=== PATIENT | female | born 1985 | race Caucasian/White ===

== ENCOUNTER 2021-11-16 11:07 | Emergency (ER) | payer BC, SELFPAY ==
[2021-11-16] VITALS (14 sets, daily range): BP systolic 107–130; BP diastolic 69–78; PULSE 78–86; RESP 18; TEMP 36.7; O2SAT 99–100
--- NOTE | ~2021-11-16 | CT_ITS ---
EXAMINATION: CT abdomen pelvis wo con DATE: 11/16/2021 13:02 INDICATION: Generalized abdominal pain. TECHNIQUE: Computed tomography (CT) of the abdomen and pelvis was performed without intravenous contr ast. The dose-length product was 199.24 mGy-cm. Automated exposure control and iterative reconstructi on technique were employed. COMPARISON: CT dated 11/03/2018. FINDINGS: Lung bases are unremarkable. Heart size normal. No significant pleural or pericardial effus ion. No significant vascular abnormality. There are mildly enlarged mesenteric and retroperitoneal ly mph nodes, likely reactive. Nonobstructive bowel gas pattern. Small amount of free fluid in the pelvi s. There are multiple segments of thickened colon including the ascending colon, sigmoid colon and rectu m, suspicious for colitis, infectious versus inflammatory most likely. The liver, spleen, pancreas, adrenal glands are unremarkable. There are punctate nonobstructing bilat eral renal stones. Bladder is unremarkable. No free air. IMPRESSION: 1. Multiple abnormal thickening segments of colon, suspicious for colitis, most likely infectious or inflammatory. 2: Enlarged mesenteric and retroperitoneal lymph nodes, likely reactive. 3: Nonobstructing bilateral nephrolithiasis. Reviewed, dictated and finalized at location B.
[2021-11-16 12:05] LABS: Basophils Percent Auto 0.5 % (0.2-1.2); Eosinophils Absolute Auto 0.1 K/mm3 (0-0.3); Hematocrit 37.2 % (37.0-47.0); Hemoglobin 12.6 g/dL (12.0-15.0); Immature Granulocyte Absolute 0.02 K/mm3 (0.00-0.031); Immature Granulocyte Percent A 0.2 % (0-0.5); Lymphocytes Absolute Auto 0.96 K/mm3 (0.9-3.2); Mean Corpuscular HGB Conc 33.9 g/dl (32-36); Mean Corpuscular Hemoglobin 32.6 pg (26-34); Mean Corpuscular Volume 96.4 fl (80-100); Mean Platelet Volume 10.5 fl (7.4-10.4); Monocytes Absolute Auto 0.5 K/mm3 (0.1-0.6); Monocytes Percent Auto 6.2 % (2.6-8.5); Neutrophils Absolute Auto 6.4 K/mm3 (1.3-6.7); Neutrophils Percent Auto 80.1 % (45.5-73.1); Platelet Count Result 298 k/mm3 (150-375); Red Blood Count 3.86 M/mm3 (4.2-5.4)
[2021-11-16 12:08] LABS: Appearance Urine Clear (Clear); Bilirubin Urine Negative (Negative); Blood Urine 2+ (Negative); Color Urine Yellow (Yellow); Glucose Urine UA Negative (Negative); Ketones Urine Negative (Negative); Leukocyte Esterase Ur Negative LEU/UL (Negative); Nitrate Urine Negative (Negative); Protein Urine Negative (Negative); Specific Grav Ur 1.025 (1.001-1.035); Urobilinogen Urine 0.2 mg/dL (<2.0); pH Urine 5.5 (5.0-9.0)
[2021-11-16 12:14] LABS: Mucus Urine Rare /lpf; RBC Urine 21-50 /hpf (0-2); Squamous Epithelial Cell Urine Rare /hpf (Few); WBC Urine 0-3 /hpf
[2021-11-16 12:14] LABS: Alanine Aminotransferase 26 U/L (6-35); Albumin Level 4.7 g/dL (3.5-5.1); Alkaline Phosphatase 63 U/L (38-126); Anion Gap 8 mmol/L (8-16); Aspartate Amino Transferase 33 U/L (14-36); Bilirubin,Total 0.5 mg/dL (0.2-1.3); Blood Urea Nitrogen 14 mg/dL (7-17); Calcium 9.4 mg/dL (8.4-10.2); Carbon Dioxide 26 mmol/L (22-30); Chloride 102 mmol/L (98-107); Estimated CRCL calculation 72 ml/min; Estimated Glomerular Filt Rate > 60; Glucose 103 mg/dL (65-110); Lipase 67 U/L (23-300); Potassium 4.7 mmol/L (3.4-5.0); Sodium 136 mmol/L (137-145)
[2021-11-16 12:24] LABS: Add Urine Microscopic? YES
--- NOTE | 2021-11-16 12:52 | ED.ABDPAIN ---
HPI - Abdominal Pain General Chief Complaint: Abdominal Pain Stated Complaint: abd pain since yesterday Time Seen by Provider: 11/16/21 11:55 History of Present Illness HPI narrative: 36-year-old female presented to the emergency department for evaluation of diffuse abdominal pain. Patient states the pain started few days ago and is more epigastric but has since progressed to diffuse abdominal pain. Patient does have some nausea and vomiting. Patient denies any pain with urination. Patient denies any significant past medical history Related Data Allergies Allergy/AdvReac Type Severity Reaction Status Date / Time hydrocodone Allergy Unknown Unknown Unverified 11/16/21 14:03 ibuprofen Allergy Unknown Unknown Unverified 11/16/21 14:03 Review of Systems Review of Systems: CONSTITUTIONAL: Denies fever, chills, or sweats. EYES: Denies visual changes, redness, or discharge. ENT: Denies rhinorrhea, congestion, sore throat, or otalgia. CARDIOVASCULAR: See HPI RESPIRATORY: Denies cough or dyspnea. GASTROINTESTINAL: See HPI GENITOURINARY: Denies dysuria or hematuria. SKIN: Denies rash or itching. MUSCULOSKELETAL: Denies back pain, joint pain, or myalgia. Exam Narrative: APPEARANCE: Well appearing, no pain, no distress, well-nourished. HEAD: normocephalic, atraumatic. EYES: PERRLA/EOMI, conjunctivae clear. NECK: Supple. No adenopathy, no masses. RESPIRATORY: Airway patent, respirations nonlabored. Clear to auscultation bilaterally, no rales, rhonchi, wheezing. CARDIOVASCULAR: Regular rate and rhythm without murmurs rubs or gallops. ABDOMINAL: Soft, nondistended, normal bowel sounds, diffuse abdominal tenderness. MUSCULOSKELETAL: Moves all extremities. Strength/ROM intact NEURO: Alert. Cranial nerves II through XII intact. Grossly intact SKIN: Warm, dry. Normal Color Course Course Emergency Course: Patient was updated on the results of her work-up and CT scan. Patient was educated reasons to return to the emergency department. Patient will have close follow-up with her primary care physician. All questions concerns were addressed. Patient did have hematuria. No obstructing urinary calculi were observed. Patient does have nephrolithiasis bilaterally. Vital Signs Vital signs: Vital Signs Temperature 98.1 F 11/16/21 11:08 Pulse Rate 86 11/16/21 11:08 Respiratory Rate 18 11/16/21 11:08 Blood Pressure 107/73 11/16/21 11:08 Pulse Oximetry 100 11/16/21 11:08 Oxygen Delivery Room Air 11/16/21 11:08 Temperature 98.1 F 11/16/21 11:08 Pulse Rate 78 11/16/21 15:07 Respiratory Rate 18 11/16/21 15:07 Blood Pressure 108/78 11/16/21 15:07 Pulse Oximetry 99 11/16/21 15:07 Oxygen Delivery Room Air 11/16/21 11:08 MDM - Abdominal Pain Lab Data Attestation: I reviewed the patient's lab results. Result diagrams: 11/16/21 11:38 11/16/21 11:38 Labs: Lab Results 11/16/21 11/16/21 11/16/21 Range/Units 11:38 11:38 11:53 WBC 8.0 (4.5-10.0) K/mm3 RBC 3.86 L (4.2-5.4) M/mm3 Hgb 12.6 (12.0-15.0) g/dL Hct 37.2 (37.0-47.0) % MCV 96.4 (80-100) fl MCH 32.6 (26-34) pg MCHC 33.9 (32-36) g/dl RDW 12.0 (11.5-14.5) % Plt Count 298 (150-375) k/mm3 MPV 10.5 H (7.4-10.4) fl Immature Gran % (Auto) 0.2 (0-0.5) % Neut % (Auto) 80.1 H (45.5-73.1) % Lymph % (Auto) 12.0 L (18.3-44.2) % Oxford % (Auto) 6.2 (2.6-8.5) % Eos % (Auto) 1.0 (0-4.4) % Baso % (Auto) 0.5 (0.2-1.2) % Lymph # (Auto) 0.96 (0.9-3.2) K/mm3 Oxford # (Auto) 0.5 (0.1-0.6) K/mm3 Eos # (Auto) 0.1 (0-0.3) K/mm3 Baso # (Auto) 0.0 (0.0-0.1) K/mm3 Abs Immat Gran (auto) 0.02 (0.00-0.031) K/mm3 Absolute Neuts (auto) 6.4 (1.3-6.7) K/mm3 Absolute Nucleated RBC 0.0 (0.0-0.012) K/mm3 Nucleated RBC % 0.0 (0.0-0.2) % Sodium 136 L (137-145) mmol/L Potassium 4.7 (3.4-5.0) mmol/L Chloride 102 (98-107
[2021-11-16] MEDS: SODIUM CHLORIDE 0.9% IV 1,000 ML 999 ML IV CONT (13:40)
== END 2021-11-16 15:08 | disposition home or self-care (01) ==
PROVIDERS: Emergency Medicine; Emergency Provider Emergency Medicine
DX: K52.9 Noninfective gastroenteritis and colitis, unspecified (principal)
CPT/HCPCS: 36415; 74176; 80053; 81001; 81025; 83690; 85025; 96361; 96374; 99284; J0131; J7030

== ENCOUNTER 2023-01-07 17:39 | Emergency (ER) | payer BC, SELFPAY ==
[2023-01-07 17:53] VITALS: BP 123/76; PULSE 82; RESP 16; TEMP 37.3; O2SAT 100
[2023-01-07 17:54] VITALS: BP 123/76; PULSE 82; RESP 16; TEMP 37.3; O2SAT 100
--- NOTE | 2023-01-07 18:15 | ED.URI ---
HPI - URI/Sore Throat General Chief Complaint: Upper Respiratory Infection Stated Complaint: Headache,Rt Ear Irritation,Sore Throat Time Seen by Provider: 01/07/23 18:15 Source: patient Mode of arrival: ambulatory Limitations: no limitations History of Present Illness HPI Narrative: 37-year-old female presented for complaint of headache for about 3 days, started with right ear pain yesterday which has worsened throughout the day. Pain radiates from the ear to the throat, pain with swallowing. She describes the pain as sharp and stabbing. Taking ibuprofen with minimal relief. She denies tinnitus, dizziness, nausea vomiting, fevers or chills. Related Data Home Medications Medication Instructions Recorded Confirmed clonazepam 1 mg tablet 1 mg PO TID 01/07/23 01/07/23 dextroamphetamine-amphetamine ER 20 mg PO DAILY 01/07/23 01/07/23 20 mg 24hr capsule,extend release escitalopram oxalate 5 mg tablet 5 mg PO DAILY 01/07/23 01/07/23 Allergies Allergy/AdvReac Type Severity Reaction Status Date / Time hydrocodone AdvReac Mild Hives Verified 01/07/23 17:53 ibuprofen AdvReac Mild Hives Verified 01/07/23 17:53 Review of Systems Review of Systems: CONSTITUTIONAL: Denies malaise, chills, or fever. EYES: Denies visual changes, redness, or discharge. ENT: Denies rhinorrhea, congestion, sinus pain, and sore throat. Reports ear pain CARDIOVASCULAR: Denies chest pain, palpitations, or edema. RESPIRATORY: Denies cough or dyspnea. GASTROINTESTINAL: Denies abdominal pain, nausea, vomiting, diarrhea SKIN: Denies rash or itching. MUSCULOSKELETAL: Denies myalgia. NEUROLOGIC: reports headache. All systems reviewed & are unremarkable except as noted in HPI and below PMFSH Past Medical History Medical History (Updated 01/07/23 @ 18:26 by Elicia Story APRN) No pertinent past medical history Comments At time of signature, agree with nursing past medical, surgical, social and family history. There is no relevant family history pertinent to the presenting complaint Exam Narrative: GENERAL: Well-appearing, well-nourished, and in no acute distress. HEAD: Normocephalic EYES: PERRLA, conjunctivae clear ENT: Nares clear. Mucous membranes moist. left TM pearly cool with dull light reflex; right TM with extensive scarring, obscuring landmarks, erythema. no tragal tenderness. Oropharynx not erythematous without lesions. Tonsils not enlarged and without exudate, no drooling, no hoarseness, no trismus, uvula midline. NECK: Supple. No lymphadenopathy CHEST: Clear to auscultation, breath sounds equal. No wheezing, rhonchi, rales, or stridor. No respiratory distress, speaks in full sentences. HEART: Regular rate and rhythm. No murmur heard. SKIN: Warm, dry, no rash. NEURO: Alert and oriented x3. PSYCH: Normal mood and affect Course Course Emergency Course: Patient is aware of diagnosis, understands and agrees to treatment plan. Anticipatory guidance given. Patient agrees to follow-up as directed and is aware of reasons to seek care at the emergency department. Portions of this record may have been created with voice recognition software Level of Care: Express Care Visit Vital Signs Vital signs: Vital Signs Temperature 99.2 F 01/07/23 17:53 Pulse Rate 82 01/07/23 17:53 Respiratory Rate 16 01/07/23 17:53 Blood Pressure 123/76 01/07/23 17:53 Pulse Oximetry 100 01/07/23 17:53 Oxygen Delivery Room Air 01/07/23 17:53 Temperature 99.2 F 01/07/23 17:54 Pulse Rate 82 01/07/23 17:54 Respiratory Rate 16 01/07/23 17:54 Blood Pressure 123/76 01/07/23 17:54 Pulse Oximetry 100 01/07/23 17:54 Oxygen Delivery Room Air 01/07/23 17:54 Reviewed MDM - URI/Sore Throat MDM Narrative Medical decision making narrative: Discussed physical exam findings. Advised supportive measures and signs/symptoms to go to the ER. Pt is appropriate for outpt treatment and f/u. Differential Diagnosis Di
== END 2023-01-07 18:26 | disposition home or self-care (01) ==
PROVIDERS: Emergency Provider Nurse Practitioner Family
DX: R51.9 Headache, unspecified (principal); H92.01 Otalgia, right ear; F41.9 Anxiety disorder, unspecified; F90.9 Attention-deficit hyperactivity disorder, unspecified type; F32.A Depression, unspecified
CPT/HCPCS: 99213; G0463

== ENCOUNTER 2023-07-11 17:05 | Emergency (ER) | payer OTHER, SELFPAY ==
--- NOTE | 2023-07-11 17:22 | ED.BACK ---
HPI - Back Pain/Injury General Chief Complaint: Back Pain/Injury Stated Complaint: back pain Time Seen by Provider: 07/11/23 18:00 Source: patient and RN notes reviewed Mode of arrival: ambulatory Limitations: no limitations History of Present Illness HPI Narrative: 38-year-old female presents with concern for back pain started on . Reports she may have slept wrong but the pain keeps getting worse. Reports she has tried icy hot and heating pads without relief. She reports pain is mid back, low back. Reports it radiates to the right leg. She denies loss of bowel or bladder function, perianal anesthesia. She denies abdominal pain, fever, body aches, chills, sweats. Denies dysuria, frequency, urgency. Denies injury MD elicited complaint: back pain Related Data Home Medications Medication Instructions Recorded Confirmed clonazepam 1 mg tablet 1 mg PO TID 01/07/23 01/07/23 dextroamphetamine-amphetamine ER 20 mg PO DAILY 01/07/23 01/07/23 20 mg 24hr capsule,extend release escitalopram oxalate 5 mg tablet 5 mg PO DAILY 01/07/23 01/07/23 Allergies Allergy/AdvReac Type Severity Reaction Status Date / Time hydrocodone AdvReac Mild Hives Verified 07/11/23 17:30 ibuprofen AdvReac Mild Hives Verified 07/11/23 17:30 Review of Systems Review of Systems: CONSTITUTIONAL: Denies malaise, chills, sweats, or fever. CARDIOVASCULAR: Denies chest pain, palpitations, or edema. RESPIRATORY: Denies cough or dyspnea. GASTROINTESTINAL: Denies abdominal pain, nausea, vomiting, diarrhea, loss of bowel function GENITOURINARY: Denies dysuria, hematuria, frequency, loss of bladder function. SKIN: Denies rash or itching. MUSCULOSKELETAL: Reports mid and low back pain that radiates to the right leg NEUROLOGIC: Denies numbness, weakness, or headache. All systems reviewed & are unremarkable except as noted in HPI and below PMFSH Past Medical History Medical History (Updated 07/11/23 @ 18:10 by Nely Franco NP) No pertinent past medical history Comments At time of signature, agree with nursing past medical, surgical, social and family history. There is no relevant family history pertinent to the presenting complaint Exam Narrative: GENERAL: Well-appearing, well-nourished, and in no acute distress. HEAD: Normocephalic, atraumatic. EYES: PERRLA and EOMI. NECK: Supple. No lymphadenopathy. CHEST: Clear to auscultation. No respiratory distress. HEART: Regular rate and rhythm. Distal pulses palpable and equal, cap refill <3 seconds ABDOMEN: Soft, nontender, nondistended, normal active bowel sounds, no palpable or pulsatile masses. No CVA tenderness MUSCULOSKELETAL: Normal range of motion and strength in all extremities; 5/5 strength with hip flexion and extension, dorsiflexion and extension, knee flexion and extension, plantar flexion and extension. Normal sensation in dermatomal distributions with sensitivity to light touch and pain. No midline back tenderness to palpation. No paraspinal tenderness. Transfers from to sitting to standing. SKIN: Warm, dry, no rash. No ecchymosis, erythema, open wounds to back. NEURO: No focal deficits. Alert and oriented x3. Normal gait. PSYCH: Normal mood and affect Course Course Emergency Course: Patient is aware of diagnosis, understands and agrees to treatment plan. Anticipatory guidance given. Patient agrees to follow-up as directed and is aware of reasons to seek care at the emergency department. Portions of this record may have been created with voice recognition software Level of Care: Express Care Visit Vital Signs Vital signs: Reviewed. MDM - Back Pain/Injury MDM Narrative Medical decision making narrative: No risk factors or findings concerning for epidural abscess, diskitis, vertebral osteomyelitis, cord compression, cauda equina, vertebral fracture or bone malignancy, AAA, or pyelonephritis. Patient instructed to consider further imaging and workup through their primary
[2023-07-11 17:30] VITALS: BP 120/67; PULSE 69; RESP 16; TEMP 36.2; O2SAT 100
== END 2023-07-11 18:12 | disposition home or self-care (01) ==
PROVIDERS: Emergency Provider Nurse Practitioner
DX: M54.6 Pain in thoracic spine (principal); M54.50 Low back pain, unspecified
CPT/HCPCS: 99213; G0463

== ENCOUNTER 2024-07-18 17:15 | Emergency (ER) | payer OTHER, SELFPAY ==
--- NOTE | ~2024-07-18 | CT_ITS ---
History: Medial back pain, T5 dermatome PROCEDURE: CT thoracic and lumbar spines without intravenous contrast. COMPARISON: None TECHNIQUE: Multiple contiguous axial images of the thoracic spine were performed without the administration of i ntravenous contrast. DLP: 798 mGy-cm FINDINGS: Preservation of the normal curvature of the thoracic and lumbar spines is identified. No acute compression fractures are present. No soft tissue abnormality is noted. No significant degenerative disease is present. Impression: Unremarkable CT examination of the thoracic and lumbar spines, as detailed above. Reviewed, dictated and finalized at location A. E BALL MIXER Impression: Unremarkable CT examination of the thoracic and lumbar spines, as detailed kelsy bruce
--- NOTE | ~2024-07-18 | XR_ITS ---
CHEST RADIOGRAPH CLINICAL HISTORY: R mid back pain; PA view possible? Assess for PNA . COMPARISON: None available TECHNIQUE: Single portable view of the chest. FINDINGS The cardiomediastinal silhouette is unremarkable. The lungs are clear. Visualized osseous structures and soft tissues are unremarkable. IMPRESSION: No focal infiltrate or effusion. Reviewed, dictated and finalized at location A. ENGINEER NUCLEAR EQUIPMENT
[2024-07-18 17:16] VITALS: BP 141/97; PULSE 96; RESP 16; TEMP 36.4; O2SAT 100
--- OUTSIDE RECORDS SUMMARY | 2024-07-18 17:16 | XMS_ITS | Referral Summary ---
Author Organization [facility] Address [address] [place] [address] Care Team Providers Care Prototype Deicer Assembler Name Role Phone Kristen Brennan MD Primary Care Provider Allergies No known active allergies Medications dextroamphetamin e-amphetamine (ADDERALL) 10 mg tablet 10 mg Active clonazePAM (KlonoPIN) 1 mg tablet Take 1 mg by mouth 3 (three) times a day Active Active Problems No known active problems Social History Tobacco Use Types Packs/Day Years Used Date Smoking Tobacco: Never Smokeless Tobacco: Never Comments No Sex and Gender Information Value Date Recorded Sex Assigned at Not on file 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 Gender Identity Not on file Sexual Orientation Not on file Last Filed Vital Signs Vital Sign Reading Time Taken Comments Blood Pressure 114/77 02/05/2022 10:24 AM CDT Pulse 96 02/05/2022 10:24 AM CDT Temperature 37.1 C (98.8 F) 02/05/2022 10:24 AM CDT Respiratory Rate 16 02/05/2022 10:24 AM CDT Oxygen Saturation 98% 02/05/2022 10:24 AM CDT Inhaled Oxygen Concentration - - Weight 52.4 kg (115 lb 9.6 oz) 02/05/2022 10:24 AM CDT Height 154.9 cm (5' 1 ) 02/05/2022 10:24 AM CDT Body Mass Index 21.84 02/05/2022 10:24 AM CDT Plan of Treatment Not on file Insurance BLUE ACCESS OOS BLUE ACCESS OOS BLUE ACCESS OOS Care Teams Prototype Deicer Assembler Relationship Specialty [place] [id number] [facility] [address] [place] [address] PCP - General Family Medicine 01/25/22
--- OUTSIDE RECORDS SUMMARY | 2024-07-18 17:17 | XMS_ITS | Encounter Summary ---
Author Organization [facility] Address 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 Report feedback Dr Apoorva Stratton <<<<<<<< TRIAGE NOTE >>>>>>>> Triage Note: Tapping Machine Operator Automatic Sally Lundy added this note on Feb 23 2015 1:23PM: carolina peralta, Pt insists/ med refill [place], [phone], Sally/RN/NOC. Pt states she came back from out of town and clonazepam is misplaced. <<<<<<<< TRIAGE/OUTCOME >>>>>>>> Guideline Title: Medication Questions - Adult Recommended Disposition: Speak with Provider or Pharmacist within 24 hours Original Inclination: Call Provider/See in 24 Intended Action: Call Provider Immediately Physician Contacted: No Requests refill of prescribed medication with valid refills; lack of medications does not put patient at clinical risk ? YES documented in this encounter Plan of Treatment Not on file documented as of this encounter Visit Diagnoses Not on filedocumented in this encounter Care Teams Dispensing Operator Relationship Specialty [place] [id number] [facility] [address] [place] [phone] PCP - General Family Practice 06/23/21 documented as of this encounter
--- OUTSIDE RECORDS SUMMARY | 2024-07-18 17:17 | XMS_ITS | Clinical Summary ---
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 Gender Identity Not on file Sexual Orientation Not on file Obstetrics History Last Filed Vital Signs Vital Sign Reading [...] 02/05/2022 10:24 AM CDT Plan of Treatment Health Maintenance Due Date Last Done Comments Breast Cancer Screening-Mammogram 1984 Cervical Cancer Screening 1984 Depression Screening 1984 Hepatitis C Screening 1984 DTaP/Tdap/Td Vaccine (1 - Tdap) 1995 Varicella Vaccines (1 of 2 - 13+ 2-dose series) 1997 Hepatitis B Screening 2002 Regular Well Visit/Exam 18-64 2002 Influenza Vaccine (#1) 2024 04/25/2014 HPV Vaccines Aged Out No longer eligi ble based on patient's age to complete this topic Pneumococcal vaccine <65 Aged Out No longer eligible based on patient's age to complete this topic Insurance iCrossing OOS iCrossing OOS iCrossing OOS Care Teams Training Lead Relationship Specialty [place] [id number] [address] PCP - General Family Medicine 01/25/22
--- OUTSIDE RECORDS SUMMARY | 2024-07-18 17:17 | XMS_ITS | Clinical Summary ---
Author Organization [facility] e Building Address [id number] [place] [phone] Care Team Providers Care Digital Technician Name Role Phone Kristen Brennan MD Primary Care Provider Allergies Active Allergy Reactions Criticality Noted Date Comments Hydrocodone-Ibuprofen Hives High 04/06/2010 Paroxetine Hcl Other (See Comments) 08/10/2010 Weight gain Tramadol Nausea and Vomiting Low 02/01/2014 Medications dextroamphetamine -amphetamine (AdderalL) 10 mg tabletIndications :Attention deficit disorder (ADD) without hyperactivity Take 1 Tablet (10 mg) by mouth 2 times daily. Max Daily Amount: 20 mg 60 Tablet 2 Active clonazePAM (KlonoPIN) 1 mg tabletIndications :Anxiety,Panic attack Take 1 Tablet (1 mg) by mouth 3 times daily. Refilling for 6 months (September to March) while awaiting psychiatry appointment. 90 Tablet 2 Active Active Problems Problem Noted Date Diagnosed Date History of tobacco abuse 04/06/2010 Migraine without aura and wi thout status migrainosus, not intractable 04/06/2010 Attention deficit disorder (ADD) without hyperac tivity 04/06/2010 Anxiety 04/06/2010 Panic attack 04/06/2010 Encounters Date Type Department Care Team Description 07/17/2024 External Device Data [facility] Provider, Abstract 07/11/2024 External Device Data [facility] Provider, Abstract 07/05/2024 External Device Data [facility] Provider, Abstract from Last 3 Months Immunizations Immunization Administration Dates Next Due Influenza Vaccine Split 3+ Yrs IM 04/25/2014 Family History Medical History Relation Name Comments COPD Father Heart Disease Father Hypertension Father Heart Disease Maternal Grandfather Diabetes Maternal Grandmother Heart Disease Maternal Grandmother Hypertension Maternal Grandmother Stroke Maternal Uncle Glaucoma Mother Hypertension Mother Cancer Paternal Aunt Alzheimer's Disease Paternal Grandfather Unknown Paternal Grandmother Healthy Sister 1 Healthy Sister 2 Relation Name Status Comments Father Alive Maternal Grandfather Maternal Grandmother Maternal Uncle Mother Alive Paternal Aunt Paternal Grandfather Paternal Grandmother Sister 1 Alive Sister 2 Alive half Social History Tobacco Use Types Packs/Day Years Used Date Smoking Tobacco: Former Cigarettes Q uit: 11/11/2020 Smokeless Tobacco: Never Tobacco Cessation:Ready to Q uit: Yes; Counseling Given: Yes Alcohol Use Standard Drinks/Week Comments No 0 (1 standard drink = 0.6 oz pur e alcohol) Comments No Sex and Gender Information Value Date Recorded Sex Assigned at Not on file Legal 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 Female 5:56 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 Gender Identity Not on file Sexual Orientation Not on file Occupation Industry Job Start Date Job End Date Not on file Not on file Not on file Not on file Last Filed Vital Signs Vital Sign Reading Time Taken Comments Blood Pressure 110/72 10/09/2021 12:52 PM CDT Pulse 94 10/09/2021 12:52 PM CDT Temperature 36.9 C (98.4 F) 09/25/2020 1:36 PM CDT Respiratory Rate 16 05/31/2013 11:50 PM 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 Oxygen Saturation 99% 10/09/2021 12:52 PM CDT Inhaled Oxygen Concentration - - Weight 54 kg (119 lb) 10/09/2021 12:52 PM CDT Height 154.9 cm (5' 1 ) 10/09/2021 12:52 PM CDT Body Mass Index 22.48 10/09/2021 12:52 PM CDT Plan of Treatment Health Maintenance Due Date Last Done Comments DTAP/TDAP/TD VACCINES (1 - Tdap) 2003 HEPATITIS B VACCINES (1 of 3 - 19+ 3-dose series) 2003 CERVICAL CANCER SCREENING 2014 09/11/2009 INFLUENZA VACCINE (#1) 2024 , 09/25/2020, 05/09/2018, Additional history exists BREAST CANCER SCREENING 2024 Preventative Visit- Commercial 06/13/2024 09/25/2020 HPV VACCINES Aged Out No longer eligi ble based on patient's age to complete this topic PNEUMOCOCCAL VACCINE 0-64 YEARS Aged Out No longer eligible based on patient's age to complete this topic Insurance BCBS BLUE ACCESS/TRUE BLUE PPO Care Teams Digital Technician Relationship Specialty [place] [id number] [facility] [address] [place] [id number] PCP - General Family Practice 06/23/21
--- OUTSIDE RECORDS SUMMARY | 2024-07-18 17:17 | XMS_ITS | Encounter Summary ---
Author Organization [facility] Address [address] [place] [address] Care Team Providers Care Rn Iv Therapy Name Role Phone Kristen Brennan MD Primary Care Provider Reason for Visit * Reason Onset Date Comments Medication Refill 11/06/2018 Encounter Details Date Type Department Care Team (Late st Contact Info) Description 11/06/2018 Refill [facility] Family Medicine [place] [address] [facility] [address] [place] [phone] Apoorva Stratton MD NO ADDRESS ON FILE Social History Tobacco Use Types Packs/Day Years Used Date Smoking Tobacco: Every Day Cigarettes Smokeless Tobacco: Never Alcohol Use Standard Drinks/Week Comments No 0 (1 standard drink = 0.6 oz pur e alcohol) Comments No Sex and Gender Information Value Date Recorded Sex Assigned at Not on file 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
--- OUTSIDE RECORDS SUMMARY | 2024-07-18 17:17 | XMS_ITS | Encounter Summary ---
Author Organization [email or web address] Address [address] [place] [address] Care Team Providers Care Medical Cash Poster Name Role Phone Kristen Brennan MD Primary Care Provider Encounter Details Date Type Department Care Team (Late st Contact Info) Description 08/30/2015 Nurse Triage Report [facility]CTION Monica Lemus, RN [address] [place] [address] Social History Tobacco Use Types Packs/Day Years Used Date Smoking Tobacco: Every Day Cigarettes Smokeless Tobacco: Never Alcohol Use Standard Drinks/Week Comments No 0 (1 standard drink = 0.6 oz pur e alcohol) Comments No Sex and Gender Information Value Date Recorded Sex Assigned at Not on file Legal 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 Report feedback to Dr. Apoorva Stratton. <<<<<<<< TRIAGE NOTE >>>>>>>> Triage Note: Sole Cutter Yamini Mariah added this note on Aug 30 2015 2:40PM: The patient will contact the office on Tuesday regarding refill <<<<<<<< TRIAGE/OUTCOME >>>>>>>> Guideline Title: Medication Questions - Adult Recommended Disposition: Provide Health Information Original Inclination: Call or see Provider > 24 hrs Intended Action: Call or see Provider>24 hrs Physician Contacted: No Caller has medication question(s) that was answered with available resources ? YES documented in this encounter Plan of Treatment Not on file documented as of this encounter Visit Diagnoses Not on filedocumented in this encounter Care Teams Medical Cash Poster Relationship Specialty [place] [address] [facility] [address] [place] [phone] PCP - General Family Practice 06/23/21 documented as of this encounter
--- OUTSIDE RECORDS SUMMARY | 2024-07-18 17:17 | XMS_ITS | Encounter Summary ---
Author Organization [employer] Address [address] [place] [address] Care Team Providers Care Windmill Technician Name Role Phone Kristen Brennan MD Primary Care Provider Encounter Details Date Type Department Care Team (Late st Contact Info) Description 07/17/2024 External Device Data [facility] ABSTRACTION Provider, Abstract NO ADDRESS ON FILE Social History Tobacco Use Types Packs/Day Years Used Date Smoking Tobacco: Former Cigarettes Q uit: 11/11/2020 Smokeless Tobacco: Never Alcohol Use Standard Drinks/Week Comments No 0 (1 standard drink = 0.6 oz pur e alcohol) Comments No Sex and Gender Information Value Date Recorded Sex Assigned at Not on file 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 [address] [place] [phone] PCP - General Family Practice 06/23/21 documented as of this encounter
--- NOTE | 2024-07-18 20:22 | ED_ITS ---
HPI - Back Pain/Injury General Chief Complaint: Back Pain/Injury Stated Complaint: R med back pain Time Seen by Provider: 07/18/24 20:06 Source: patient Mode of arrival: ambulatory Limitations: no limitations History of Present Illness HPI Narrative: Patient presents with right mid back pain located to the right of the spine. Last night she was unable to sleep. No trauma or injury. It does not radiate and is pin point but however Her right leg does occasionally experience a pressure like sensation, like it is asleep. No fevers, chills, cough. Describes it as sore to the touch, like a stabbing sensation. Taking Tylenol and Advil with the last dose 1500. No urinary symptoms (hematuria, urgency, frequency, dysuria). No personal history of cancer. Denies IVDU. No syncope, abdominal pain, or steroid use. Related Data Home Medications ?Medication ?Instructions ?Recorded ?Confirmed ?Last Taken ?Type clonazepam 1 mg tablet 1 mg PO TID 01/07/23 01/07/23 Unknown History dextroamphetamine-amphetamine ER 20 mg PO DAILY 01/07/23 01/07/23 Unknown History 20 mg 24hr capsule,extend release escitalopram oxalate 5 mg tablet 5 mg PO DAILY 01/07/23 01/07/23 Unknown History Allergies Allergy/AdvReac Type Severity Reaction Status Date / Time No Known Allergies Allergy Verified 07/18/24 21:14 [facility] Past Medical History Medical History No pertinent past medical history Family History Family History Father Lung cancer Social History Social History Other substance usage details: denies IVDU Exam Narrative: GENERAL: Well-appearing, well-nourished, and in no acute distress. HEAD: Normocephalic, atraumatic. EYES: Non injected, non icteric ENT: Nares clear, no rhinorrhea or epistaxis. NECK: Supple. CHEST: Speaking in full sentences. No respiratory distress. HEART: Regular rate and rhythm. . ABDOMEN: Soft, nondistended. BACK: No midline TTP of thoracic or lumbar spinous processes which are midline without bony stepoffs. Right sided paraspinal and inferior scapular/trapezius TTP. No palpable spasm. EXTREMITIES: Normal range of motion. No upper extremity edema. Able to engage bilateral arms and raise them above her head to lift sweatshirt. SKIN: Warm, dry, no rash - no lesions along dermatome. NEURO: No focal deficits. Alert and oriented x3. Patient ambulating with steady gait. PSYCH: Normal mood and affect. Course Vital Signs Vital signs: Vital Signs Temperature 97.6 F 07/18/24 17:16 Pulse Rate 96 07/18/24 17:16 Respiratory Rate 16 07/18/24 17:16 Blood Pressure 141/97 H 07/18/24 17:16 Pulse Oximetry 100 07/18/24 17:16 Temperature 97.6 F 07/18/24 17:16 Pulse Rate 96 07/18/24 17:16 Respiratory Rate 16 07/18/24 17:16 Blood Pressure 141/97 H 07/18/24 17:16 Pulse Oximetry 100 07/18/24 17:16 MDM - Back Pain/Injury MDM Narrative Medical decision making narrative: Patient presents with mid/thoracic back pain particularly on the right. Non radi ating and no other systemic signs but she does intermittently have right leg symptoms. In the emergency department she is afebrile vital signs notable for hypertension. Back has no deformities, external skin changes, or signs of trauma. Curvature is within normal limits. No tenderness is noted on palpation of the spinous processes which are midline. Lumbar and thoracic paraspinal muscles are without spasm but she does have pin point tenderness. Patient demonstrates range of motion. They do not have any other red flags for fracture, malignancy, infection (e.g. spinal epidural abscess), or aortic/vascular: Age, no trauma, not on chronic steroids, no symptoms of cancer, no fever, IV drug use, HIV, immunosuppression, abdominal pain, tearing pain, syncope, or urinary symptoms. However, she is having pinpoint tenderness to palpation along posterior back, dermatome T5/T6 and with paresthesias in R Leg. Will proceed with CT thoracic and lumbar spine and chest xray (PA view). patient given analgesic medication. Imaging negative. Discharged in stable condition with prescriptoins for multimodal pain strategies (OTC analgesic medications as well as muscle relaxer and topical approach) and advised f/u and given strict ED back pain return precautions. Provided contact information/referral for PCP if she does not have one. Differential Diagnosis Differential diagnosis: Likely thoracic back pain and discitis Medical Records Attestation: I reviewed the patient's medical records. Medical records narrative: Patient seen at urgent care Jun 2023 for back pain Imaging Data Radiologist's impression: Impressions Chest X-Ray 07/18/24 21:16 IMPRESSION: No focal infiltrate or effusion. Thoracic/Lumbar Spine CT 07/18/24 21:18 Impression: Unremarkable CT examination of the thoracic and lumbar spines, as detailed above. Discharge Plan Discharge Clinical Impression: Strain of thoracic back region Patient Disposition: Home, Self-Care Condition: Stable Instructions: Antibiotic Form, Back Pain (ED), Thoracic Back Strain (ED) Additional Instructions: your imaging did not identify a cause of your pain so this likely represents a strain. treatment is aimed at multimodal pain strategy to target both pain, inflammation, muscle relaxation, and topical approaches to allow you to balance both rest with maintaining movement and activity to perform stretching /strength conditioning exercises. follow-up with primary care physician. If you do not have one the name of the doctors listed below. Acetaminophen/Tylenol (maximum 4000 mg per day) is safe to take with NSAIDs (ibuprofen/Motrin) for pain relief. Return to the emergency department any new or worsening symptoms. Return to the ER if you have increased pain in your back, you develop lower extremity paralysis, you have numbness or tingling in your private parts, or you are unable to control your ability to urinate/stool. Patient Language: Serbian Prescriptions: New lidocaine 4 % adhesive patch,medicated 1 patch topical DAILY PRN (Reason: pain) Qty: 5 0RF methocarbamol 750 mg tablet 750 mg PO HS Qty: 10 0RF ibuprofen 600 mg tablet 600 mg PO TID PRN (Reason: pain) Qty: 30 0RF acetaminophen 500 mg capsule 1,000 mg PO Q6H PRN (Reason: pain) Qty: 30 0RF No Action cyclobenzaprine 10 mg tablet 10 mg PO TID PRN (Reason: muscle spasm) Qty: 20 0RF prednisone 20 mg tablet 40 mg PO DAILY 5 Days Qty: 10 0RF clonazepam 1 mg tablet 1 mg PO TID dextroamphetamine-amphetamine 20 mg capsule,extended release 24hr 20 mg PO DAILY escitalopram oxalate 5 mg tablet 5 mg PO DAILY ibuprofen 800 mg tablet 800 mg PO TID PRN (Reason: pain) Qty: 30 0RF Follow-up/Referrals: PHYSICIAN,APPRENTICESHIP REPRESENTATIVE [Primary Care Provider] - Gene Guerrero MD [Physician] - (family practice) Stand Alone Forms: Work/School Release IP Time of Disposition: 22:06
[2024-07-18] MEDS: HYDROcodone/acetaminophen (*CRX) 5-325 MG TABLET 1 TAB PO (21:15)
--- OUTSIDE RECORDS SUMMARY | 2024-07-18 22:00 | XMS_ITS | Encounter Summary ---
Author Organization [facility] Address 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 Report feedback Dr Apoorva Stratton <<<<<<<< TRIAGE NOTE >>>>>>>> Triage Note: Materials Engineer Sally Lundy added this note on Feb 23 2015 1:23PM: [place] per[place], Pt insists/ med refill [place], [id number], Sally/RN/NOC. Pt states she came back from [...] on filedocumented in this encounter Care Teams Audio Visual Production Specialist Relationship Specialty [place] [address] [facility] [address] [place] [phone] PCP - General Family Practice 06/23/21 documented as of this encounter
--- OUTSIDE RECORDS SUMMARY | 2024-07-18 22:00 | XMS_ITS | Encounter Summary ---
Author Organization [employer] [facility] Address 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
--- OUTSIDE RECORDS SUMMARY | 2024-07-18 22:00 | XMS_ITS | Encounter Summary ---
Author Organization [facility] Address [address] [place] [address] Care Team Providers Care Railroad Shop Inspector Name Role Phone Kristen Brennan MD Primary Care Provider Reason for Visit * Reason Onset Date Comments Medication Refill 11/06/2018 Encounter Details Date Type Department Care Team (Late st Contact Info) Description 11/06/2018 Refill [facility] [place] [address] [facility] [address] [place] [phone] Apoorva Stratton MD NO ADDRESS ON FILE Social History Tobacco Use Types Packs/Day Years Used Date Smoking Tobacco: Every Day Cigarettes Smokeless Tobacco: Never Alcohol Use Standard Drinks/Week Comments No 0 (1 standard drink = 0.6 oz pur e alcohol) Comments No Sex and Gender Information Value Date Recorded Sex Assigned at Not on file 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
--- OUTSIDE RECORDS SUMMARY | 2024-07-18 22:00 | XMS_ITS | Clinical Summary ---
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
--- OUTSIDE RECORDS SUMMARY | 2024-07-18 22:00 | XMS_ITS | Encounter Summary ---
Author Organization [employer] Address [address] [place] [address] Care Team Providers Care Social Work Faculty Member Name Role Phone Kristen Brennan MD Primary Care Provider Encounter Details Date Type Department Care Team (Late st Contact Info) Description 08/30/2015 Nurse Triage Report [facility] ABSTRACTION Monica Lemus, RN [address] [place] [address] Social History Tobacco Use Types Packs/Day Years Used Date Smoking Tobacco: Every Day Cigarettes Smokeless Tobacco: Never Alcohol Use Standard Drinks/Week Comments No 0 (1 standard drink = 0.6 oz pur e alcohol) Comments No Sex and Gender Information Value Date Recorded Sex Assigned at Not on file 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 <<<<<<<< TRIAGE NOTE >>>>>>>> Triage Note: Brazer Induction Yamini Mariah added this note on Aug [...] on filedocumented in this encounter Care Teams Social Work Faculty Member Relationship Specialty [place] [address] [facility] [address] [place] [phone] PCP - General Family Practice 06/23/21 documented as of this encounter
--- OUTSIDE RECORDS SUMMARY | 2024-07-18 22:00 | XMS_ITS | Referral Summary ---
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
[2024-07-18] MEDS: LIDOCAINE 5% PATCH 1 PATCH TRANSDERM (22:27)
[2024-07-18] MEDS: KETOROLAC 30 MG/ML VIAL (*BKC) 15 MG IM (22:28)
== END 2024-07-18 22:33 | disposition home or self-care (01) ==
PROVIDERS: Emergency Provider Student in an Organized Health Care Education/Training Program
DX: S29.012A Strain of muscle and tendon of back wall of thorax, initial encounter (principal)
CPT/HCPCS: 71045; 72128; 72131; 96372; 99284; A9270; J1885